=== PATIENT | male | born 1980 | race Caucasian/White ===

== ENCOUNTER 2018-04-02 00:36 | Emergency (ER) | payer OTHER ==
[~2018-04-02] VITALS: Ht 175.3 cm; Wt 83.9 kg
[2018-04-02 02:45] VITALS: BP 190/97
== END 2018-04-02 02:45 | disposition short-term general hospital (02) ==
LOC: M.ERS 00:36
DX: S02.69XA Fracture of mandible of other specified site, initial encounter for closed fracture (principal); Z88.1 Allergy status to other antibiotic agents; Z88.8 Allergy status to other drugs, medicaments and biological substances; Y08.89XA Assault by other specified means, initial encounter; Y93.89 Activity, other specified; Y92.89 Other specified places as the place of occurrence of the external cause; Y99.8 Other external cause status

== ENCOUNTER 2018-12-23 08:11 | Emergency (ER) | payer OTHER ==
[~2018-12-23] VITALS: Ht 175.3 cm; Wt 83.9 kg
[2018-12-23] MEDS ORDERED: LISINOPRIL10 MG PO (08:19)
[2018-12-23] MEDS ORDERED: HYDROCHLOROTH12.5 M1 PO (08:19)
[2018-12-23] MEDS ORDERED: LIALDA1.2 GM PO (08:20)
[2018-12-23] MEDS ORDERED: IMMURAN (08:21)
[2018-12-23] MEDS ORDERED: DOXYCYCLINE 10100 MG PO (09:22)
[2018-12-23 09:37] VITALS: BP 155/103
== END 2018-12-23 09:40 | disposition home or self-care (01) ==
LOC: M.ERS 08:11
DX: H00.014 Hordeolum externum left upper eyelid (principal); Z88.1 Allergy status to other antibiotic agents; Z88.8 Allergy status to other drugs, medicaments and biological substances

== ENCOUNTER 2020-02-23 12:10 | Emergency (ER) | payer OTHER ==
[~2020-02-23] VITALS: Ht 175.3 cm; Wt 86.2 kg
[~2020-02-23 12:10] MED LIST: DOXYCYCLINE 10100 MG PO; HYDROCHLOROTH12.5 M1 PO; IMMURAN; LIALDA1.2 GM PO; LISINOPRIL10 MG PO
[2020-02-23] MEDS ORDERED: ACYCLOVIR 800800 MG PO (12:25)
[2020-02-23] MEDS ORDERED: PERCOCET 5-3251 EACH PO (12:26)
[2020-02-23 12:29] VITALS: BP 135/70
== END 2020-02-23 12:30 | disposition home or self-care (01) ==
LOC: M.ERS 12:10
DX: B02.9 Zoster without complications (principal); R03.0 Elevated blood-pressure reading, without diagnosis of hypertension; Z88.1 Allergy status to other antibiotic agents

== ENCOUNTER → 2020-11-27 | Outpatient (CLI) | payer OTHER ==
[~2020-11-27] MED LIST changes: +ACYCLOVIR 800800 MG PO; +PERCOCET 5-3251 EACH PO
== END ==
LOC: M.SLEEPLAB 20:35
PROVIDERS: ATTEND Student in an Organized Health Care Education/Training Program
DX: R06.83 Snoring (principal); I15.9 Secondary hypertension, unspecified

== ENCOUNTER 2021-03-05 16:10 | Emergency (ER) | payer OTHER ==
[~2021-03-05] VITALS: Ht 175.3 cm; Wt 83.9 kg
[2021-03-05] MEDS ORDERED: ENTYVIO300 MG IV (16:23)
[2021-03-05 16:48] LABS: HEMATOCRIT 31.3 % (42.0-52.0); HEMOGLOBIN 9.3 gm/dL (14.0-18.0); MCH 18.8 pg (26.0-34.0); MCHC 29.8 g/dL (28.0-37.0); MPV 6.7 fl. (7.2-11.1); NUCLEATED RBCS 0 /100WBC; PLATELET COUNT* 706 thou/uL (150-400); RBC 4.96 mil/uL (4.50-6.00); RDW-CV 19.1 % (10.5-14.5); WBC 20.1 thou/uL (4.0-11.0)
[2021-03-05 16:56] LABS: CALCIUM 9.3 mg/dL (8.5-10.1); CREATININE 1.3 mg/dL (0.6-1.3); POTASSIUM 4.2 mmol/L (3.5-5.1)
[2021-03-05 17:00] LABS: TOTAL BILIRUBIN 0.3 mg/dL (<0.1-1.0); TOTAL PROTEIN 7.9 g/dL (6.4-8.2)
[2021-03-05 17:27] LABS: URINE BILIRUBIN NEGATIVE (Negative); URINE BLOOD NEGATIVE (Negative); URINE CLARITY CLEAR; URINE COLOR YELLOW; URINE GLUCOSE-RANDOM NEGATIVE (Negative); URINE KETONES NEGATIVE (Negative); URINE LEUKOCYTES-REFLEX NEGATIVE (Negative); URINE NITRITE-REFLEX NEGATIVE (Negative); URINE PROTEIN 1+ (Negative); URINE SPECIFIC GRAVITY >= 1.030 (1.005-1.030); URINE UROBILINOGEN 0.2 E.U./dl (0.2-1.0)
[2021-03-05 17:35] LABS: ABSOLUTE NEUTROPHILS 17.1 thou/uL (1.6-8.1)
[2021-03-05 17:39] LABS: LARGE PLATELETS RARE; PLATELET ESTIMATE INCREASED
[2021-03-05 17:40] LABS: ANISOCYTOSIS 1+; HYPOCHROMASIA 2+
[2021-03-05 17:41] LABS: MICROCYTES 3+; POLYCHROMASIA Occasional
[2021-03-05] MEDS ORDERED: NORCO5 PO ×2 (18:04→18:17)
[2021-03-05] MEDS ORDERED: ONDANSETRON ODT4 MG PO (18:04)
[2021-03-05] MEDS ORDERED: AUGMENTIN 875-1 EACH PO (18:04)
[2021-03-05 18:22] VITALS: BP 161/70
--- NOTE | 2021-03-06 09:38 | EKG ---
[place] [address] ELECTROCARDIOGRAM REPORT Name: OLIVIARACHELLE CELI Room: [facility]#: [id number] Admission: 03/05/21 Attend Phys: Discharge: 03/05/21 Date of : 80 Date of Service: 03/05/21 1621 Report #: [id number] THIS REPORT FOR: //name// [facility] ED Test Date: 2021-03-05 Test Time: 16:21:36 Pat Name: RACHELLE BAKER Department: Room: Gender: [employer] Cash[employer]: JAZZY : 1980 Requested By: Rey Gates Order Number: [id number] MD: Angelo Gao Measurements Intervals [place] Rate: 86 P: 67 MN: 137 QRS: 43 QRSD: 99 T: 5 QT: 341 QTc: 408 Interpretive Statements Sinus rhythm Probable left ventricular hypertrophy ST elev, probable normal early repol pattern No previous ECG available for comparison Electronically Signed On 03-06-2021 9:38:19 CDT by Angelo Gao [email or web address] <ELECTRONICALLY SIGNED> By: Angelo Gao MD, MERGED WITH [facility] 03/06/21 0938 1621 1621 Angelo Gao MD, MERGED WITH [facility] /EPI
== END 2021-03-05 18:23 | disposition home or self-care (01) ==
LOC: M.ERS 16:10
PROVIDERS: Physician Assistant
DX: K52.9 Noninfective gastroenteritis and colitis, unspecified (principal); D64.9 Anemia, unspecified; D47.3 Essential (hemorrhagic) thrombocythemia; Z98.890 Other specified postprocedural states; Z79.899 Other long term (current) drug therapy; Z88.1 Allergy status to other antibiotic agents

== ENCOUNTER 2021-06-11 13:18 | Emergency (ER) | payer OTHER ==
[~2021-06-11] VITALS: Ht 175.3 cm; Wt 74.8 kg
[~2021-06-11 13:18] MED LIST changes: +AUGMENTIN 875-1 EACH PO; +ENTYVIO300 MG IV; +NORCO5 PO; +ONDANSETRON ODT4 MG PO
[2021-06-11 14:08] VITALS: BP 115/82
[2021-06-11] MEDS ORDERED: ELIQUIS2.5 MG PO (14:12)
== END 2021-06-11 14:55 | disposition left against medical advice (07) ==
LOC: M.ERS 13:18
DX: R10.2 Pelvic and perineal pain (principal); Z53.21 Procedure and treatment not carried out due to patient leaving prior to being seen by health care provider

== ENCOUNTER 2021-06-20 12:41 | Emergency (ER) | payer OTHER ==
[~2021-06-20] VITALS: Ht 175.3 cm; Wt 73.5 kg
[~2021-06-20 12:41] MED LIST changes: +ELIQUIS2.5 MG PO
[2021-06-20] MEDS ORDERED: XANAX1 MG PO (12:57)
[2021-06-20] MEDS ORDERED: IMODIUM A-D2 MG PO (12:58)
[2021-06-20] MEDS ORDERED: PERCOCET PO (13:19)
[2021-06-20] MEDS ORDERED: DOXYCYCLINE 10100 MG PO (13:54)
[2021-06-20 13:55] VITALS: BP 127/89
== END 2021-06-20 13:55 | disposition home or self-care (01) ==
LOC: M.ERS 12:41
DX: R10.30 Lower abdominal pain, unspecified (principal); Z48.00 Encounter for change or removal of nonsurgical wound dressing; Z79.899 Other long term (current) drug therapy; Z88.1 Allergy status to other antibiotic agents; Z88.8 Allergy status to other drugs, medicaments and biological substances